=== PATIENT | female | born 1935 | race Caucasian/White ===

== ENCOUNTER 2020-12-18 22:39 | Inpatient (IN) | payer MEDICARE ==
[~2020-12-18] VITALS: Ht 165.1 cm; Wt 60.0 kg
[2020-12-18 23:07] LABS: BASOPHILS % (AUTO) 1 % (0-1); EOSINOPHILS % (AUTO) 0 % (1-7); LYMPHOCYTES % (AUTO) 13 % (22-44); MEAN CORPUSCULAR HEMOGLOBIN 38.3 pg (27.0-34.8); MEAN CORPUSCULAR HGB CONC 33.4 g/dL (32.4-35.8); MEAN PLATELET VOLUME 8.2 fL (7.4-10.4); MONOCYTES % (AUTO) 15 % (2-9); NEUTROPHILS % (AUTO) 71 % (42-75); PLATELET COUNT 327 x10^3/uL (130-400); RED BLOOD COUNT 2.38 x10^6/uL (3.82-5.3); RED CELL DISTRIBUTION WIDTH 15.7 % (9.6-15.2)
[2020-12-18 23:16] LABS: ALANINE AMINOTRANSFERASE 20 U/L (12-78); ALBUMIN 1.3 g/dL (3.4-5.0); ANION GAP 6 mmol/L (5-15); CHLORIDE 111 mmol/L (98-107); CREATININE 1.21 mg/dL (0.55-1.02)
[2020-12-18 23:18] LABS: ALKALINE PHOSPHATASE 119 U/L (45-117); BILIRUBIN,TOTAL 0.5 mg/dL (0.2-1.0); TOTAL PROTEIN 5.6 g/dL (6.4-8.2)
--- NOTE | 2020-12-18 23:29 | NUR ---
BIBA FOR INCREASED CONFUSION PER FAMILY AND FAMILY UNABLE TO CARE FOR PT. PT WITH RECENT CVA (UNSURE OF DEFECITS) AND DC'D HOME 2 DAYS AGO. PT RESPONDES TO NAME AND KNOWS MONTH AND DAY OF BIRTHDAT BUT NOT YEAR. PT REPEATS WORDS WHEN ATTEMPTING TO ASK QUESTION BUT DOES NOT ANSWER QUESTIONS.
[2020-12-18 23:32] LABS: ANISOCYTOSIS 1+; TARGET CELLS 1+
[2020-12-18 23:33] LABS: <PLATELET ESTIMATE> ADEQUATE; <PLT MORPHOLOGY> NORMAL PLT MORPH; PMNS WITH VACUOLES 1+; POLYCHROMASIA 1+
--- NOTE | 2020-12-19 03:16 | NUR ---
REPORT TO JIM BERNAL
--- NOTE | 2020-12-19 03:55 | NUR ---
PT TO BE ADMITTED. MEDICAL BED REQUESTED
--- NOTE | 2020-12-19 04:11 | NUR ---
PT PROVIDED WITH WATER PER REQUEST. PT RESTING COMFORTABLY AND IN NO ACUTE DISTRESS. REMAINS ON CR MONITOR.
[2020-12-19] MEDS ORDERED: BISACODYL 10 MG SUPP PR PRN (04:30)
[2020-12-19] MEDS ORDERED: ENOXAPARIN 40 MG/0.4 ML SQ SCH (04:30)
[2020-12-19] MEDS ORDERED: ACETAMINOPHEN 325 MG TABLET PO PRN (04:30)
[2020-12-19] MEDS ORDERED: ONDANSETRON 2MG/ML, 2ML IVPush PRN (04:30)
[2020-12-19] MEDS ORDERED: POLYETHYLENE GLYCOL 17 GM PACKET PO PRN (04:30)
[2020-12-19] MEDS ORDERED: MELATONIN 5 MG TABLET PO PRN (04:30)
[2020-12-19] MEDS ORDERED: GUAIFENESIN/DM 200-20MG, 10ML UDC PO PRN (04:30)
--- NOTE | 2020-12-19 04:52 | NUR ---
REPORT CALLED TO BERNARD RN, AND PT TO BE TRANSPORTED TO FLOOR.
[2020-12-19 05:07] VITALS: BP 98/50
[2020-12-19] MEDS: ENOXAPARIN 40 MG/0.4 ML SQ SCH (05:32)
[2020-12-19] MEDS ORDERED: LORazepam 0.5MG TABLET PO PRN (06:00)
[2020-12-19] MEDS ORDERED: LORazepam 2 MG/ML, 1ML IV PRN ×2 (06:00)
[2020-12-19] MEDS ORDERED: LORazepam 1MG TABLET PO PRN (06:00)
[2020-12-19] MEDS ORDERED: FOLI1TAB32 PO (06:33)
[2020-12-19] MEDS ORDERED: MIDO10TA PO (06:33)
[2020-12-19] MEDS ORDERED: APIX5TAB PO (06:33)
[2020-12-19 10:46] VITALS: BP 110/68
[2020-12-19] MEDS: LIDODERM 5% PATCH TD SCH (12:00)
[2020-12-19 14:46] VITALS: BP 102/68
[2020-12-19 14:51] VITALS: BP 88/54
[2020-12-19 19:20] VITALS: BP 101/64
[2020-12-19] MEDS ORDERED: CHOL100011 PO (19:35)
[2020-12-19] MEDS ORDERED: CALC200T3 PO (19:35)
[2020-12-20] MEDS ORDERED: ASCO500T7 PO (00:49)
[2020-12-20 01:16] VITALS: BP 98/62
[2020-12-20] MEDS: ENOXAPARIN 40 MG/0.4 ML SQ SCH (05:33)
[2020-12-20 09:18] LABS: BASOPHILS % (AUTO) 0 % (0-1); EOSINOPHILS % (AUTO) 0 % (1-7); LYMPHOCYTES % (AUTO) 9 % (22-44); MEAN CORPUSCULAR HEMOGLOBIN 38.6 pg (27.0-34.8); MEAN CORPUSCULAR HGB CONC 33.5 g/dL (32.4-35.8); MEAN PLATELET VOLUME 8.1 fL (7.4-10.4); MONOCYTES % (AUTO) 9 % (2-9); NEUTROPHILS % (AUTO) 82 % (42-75); PLATELET COUNT 311 x10^3/uL (130-400); RED BLOOD COUNT 2.01 x10^6/uL (3.82-5.3); RED CELL DISTRIBUTION WIDTH 15.9 % (9.6-15.2)
[2020-12-20 09:25] LABS: ALBUMIN 1.2 g/dL (3.4-5.0); ANION GAP 7 mmol/L (5-15); CALCIUM 7.8 mg/dL (8.5-10.1); CHLORIDE 115 mmol/L (98-107)
[2020-12-20 09:31] LABS: ALANINE AMINOTRANSFERASE 20 U/L (12-78); ALKALINE PHOSPHATASE 103 U/L (45-117); BILIRUBIN,TOTAL 0.7 mg/dL (0.2-1.0); CREATININE 1.05 mg/dL (0.55-1.02); TOTAL PROTEIN 5.1 g/dL (6.4-8.2)
[2020-12-20 10:03] VITALS: BP 84/53
[2020-12-20 10:04] VITALS: BP 93/59
--- NOTE | 2020-12-20 11:58 | NUR ---
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
[2020-12-20 14:19] VITALS: BP 90/56
[2020-12-20] MEDS: D5%-0.45% NACL 1,000 ML IV SCH ×2 (16:09→23:36)
[2020-12-20] MEDS ORDERED: HEPARIN 5,000 UNITS/ML, 1ML IV PRN (16:30)
[2020-12-20] MEDS ORDERED: HEPARIN 5,000 UNITS/ML, 1ML IV ONE (16:30)
[2020-12-20] MEDS ORDERED: HEPARIN 25,000 UNITS/250ML PMX 250 ML IV PRN (16:30)
[2020-12-20 19:53] VITALS: BP 92/56
[2020-12-20] MEDS: CEFTRIAXONE 2 GM in DEXTROSE 5% 50 ML IVPB SCH (20:32)
[2020-12-20 21:55] VITALS: BP 102/70
[2020-12-21] MEDS: LIDODERM 5% PATCH TD SCH ×2 (02:30→21:22)
[2020-12-21 02:38] VITALS: BP 145/50
[2020-12-21 04:24] LABS: BASOPHILS % (AUTO) 0 % (0-1); EOSINOPHILS % (AUTO) 0 % (1-7); LYMPHOCYTES % (AUTO) 10 % (22-44); MEAN CORPUSCULAR HGB CONC 32.8 g/dL (32.4-35.8); MEAN PLATELET VOLUME 8.2 fL (7.4-10.4); MONOCYTES % (AUTO) 8 % (2-9); NEUTROPHILS % (AUTO) 82 % (42-75); PLATELET COUNT 295 x10^3/uL (130-400); RED BLOOD COUNT 2.16 x10^6/uL (3.82-5.3)
[2020-12-21 04:34] LABS: ALANINE AMINOTRANSFERASE 21 U/L (12-78); ALBUMIN 1.2 g/dL (3.4-5.0); ANION GAP 6 mmol/L (5-15); CALCIUM 7.7 mg/dL (8.5-10.1); CHLORIDE 115 mmol/L (98-107); CREATININE 1.09 mg/dL (0.55-1.02)
[2020-12-21 04:37] LABS: ALKALINE PHOSPHATASE 102 U/L (45-117); BILIRUBIN,TOTAL 0.6 mg/dL (0.2-1.0); TOTAL PROTEIN 5.2 g/dL (6.4-8.2)
[2020-12-21] MEDS ORDERED: HEPARIN 5,000 UNITS/ML, 1ML IV PRN (05:00)
[2020-12-21] MEDS ORDERED: HEPARIN 5,000 UNITS/ML, 1ML IV ONE (05:00)
[2020-12-21] MEDS ORDERED: HEPARIN 25,000 UNITS/250ML PMX 250 ML IV PRN (05:00)
[2020-12-21 09:05] VITALS: BP 91/57
[2020-12-21] MEDS: D5%-0.45% NACL 1,000 ML IV SCH (11:18)
[2020-12-21 14:05] VITALS: BP 96/61
[2020-12-21 20:57] VITALS: BP 91/54
[2020-12-21] MEDS: CEFTRIAXONE 2 GM in DEXTROSE 5% 50 ML IVPB SCH (21:22)
[2020-12-22] VITALS: BP 97/56
[2020-12-22] MEDS: D5%-0.45% NACL 1,000 ML IV SCH ×2 (00:26→08:24)
[2020-12-22 07:23] VITALS: BP 92/54
[2020-12-22] MEDS ORDERED: ACETAMINOPHEN 325 MG TABLET PO PRN (07:30)
[2020-12-22] MEDS ORDERED: AMOXICILLIN 500 MG CAPSULE PO SCH (09:00)
[2020-12-22] MEDS ORDERED: APIXABAN 5 MG TABLET PO SCH (09:00)
[2020-12-22] MEDS ORDERED: DOXYCYCLINE 100MG TABLET PO SCH (09:00)
[2020-12-22 09:10] LABS: ANION GAP 4 mmol/L (5-15); CALCIUM 7.3 mg/dL (8.5-10.1); CHLORIDE 113 mmol/L (98-107)
[2020-12-22 09:11] LABS: CREATININE 1.02 mg/dL (0.55-1.02)
[2020-12-22 12:47] VITALS: BP 96/64
== END 2020-12-22 18:09 | disposition hospice, home (50) | DRG 175 ==
LOC: ED 23:10 → EDIP 12-19 04:05 → OBSVTOIN 12-19 04:05 → 3N 12-19 05:01 → INTOOBSV 12-20 16:02 → OBSVTOIN 12-20 16:02 → 5SO 12-20 21:53 → 3N 12-22 05:21
PROVIDERS: ADMIT Internal Medicine; ATTEND Internal Medicine
DX: I26.09 Other pulmonary embolism with acute cor pulmonale (principal); J96.01 Acute respiratory failure with hypoxia; J18.9 Pneumonia, unspecified organism; E43 Unspecified severe protein-calorie malnutrition; N17.9 Acute kidney failure, unspecified; E87.0 Hyperosmolality and hypernatremia; E86.0 Dehydration; F17.200 Nicotine dependence, unspecified, uncomplicated; F19.10 Other psychoactive substance abuse, uncomplicated; E83.42 Hypomagnesemia; F10.10 Alcohol abuse, uncomplicated; Y90.9 Presence of alcohol in blood, level not specified; R74.8 Abnormal levels of other serum enzymes; D75.89 Other specified diseases of blood and blood-forming organs; Z66 Do not resuscitate; Z51.5 Encounter for palliative care; D50.9 Iron deficiency anemia, unspecified; Z79.01 Long term (current) use of anticoagulants; Z68.22 Body mass index [BMI] 22.0-22.9, adult; Z86.711 Personal history of pulmonary embolism
CPT/HCPCS: 36415; 70450; 71045; 80048; 80053; 80320; 84145; 85025; 85379; 85520; 87040; 93005; 99285; G0378; J0696; J1650; G0480